=== PATIENT | female | born 1990 | race Caucasian/White ===

== ENCOUNTER → 2017-01-20 | Outpatient (CLI) | payer BC ==
[~2017-01-20] MED LIST: BUPROPION HCL150 M1 PO; HYDROXYZINE HCL25 M1 PO; JULEBER 28 DAY1 EACH PO; MEDROL DOSEPAK4 MG PO; ZITHROMAX250 MG PO
[2017-01-20 13:23] LABS: BILIRUBIN NEGATIVE (NEGATIVE); BLOOD TRACE-INTACT (NEGATIVE); CLARITY CLEAR (CLEAR); COLOR YELLOW (YELLOW); GLUCOSE NEGATIVE (NEGATIVE); KETONE NEGATIVE (NEGATIVE); LEUKO ESTERASE NEGATIVE (NEGATIVE); NITRITE NEGATIVE (NEGATIVE); PROTEIN NEGATIVE (NEGATIVE); SPECIFIC GRAVITY <= 1.005 (1.005-1.030); UROBILINOGEN 0.2 E.U./dl (0.2-1.0)
[2017-01-20 13:32] LABS: URINE REFLEX COMMENT NO (NO)
== END | disposition home or self-care (01) ==
LOC: LAB 12:41
PROVIDERS: Registered Nurse
DX: R35.0 Frequency of micturition (principal)

== ENCOUNTER → 2017-02-02 | Day surgery (SDC) | payer OTHER ==
[~2017-02-02] VITALS: Ht 157.4 cm; Wt 51.7 kg
--- NOTE | ~2017-02-02 | PROC NOTE ---
[place], [place] PROCEDURE NOTE NAME: NAYELY RODRIGUES UNIT #: [id number] ROOM: DOCTOR: JUAN BIGGS MD BIRTHDATE: [birth year] DOS: 02/02/2017 PREOPERATIVE DIAGNOSIS: Chronic diarrhea, abdominal pain. POSTOPERATIVE DIAGNOSIS: Chronic diarrhea, abdominal pain. PROCEDURE: Colonoscopy with biopsies. ENDOSCOPIST: Juan Biggs MD TEACHING SUPERVISOR: PGY1. ANESTHESIA: MAC. INDICATIONS: This is a 26-year-old lady with a history of chronic abdominal pain and diarrhea, who is here for the above-mentioned procedure. The procedure and its complications explained to the patient in detail preoperatively. Complications that were discussed included but were not limited to, bleeding, colon perforation, missed lesions, and prolonged pain. She agreed to proceed. DESCRIPTION OF PROCEDURE: After identifying the patient, the patient was brought to the endoscopy suite and laid in the left lateral position. After time-out procedure was called, IV sedation was administered by the anesthesia team. A digital rectal exam was performed, which was within normal limits. An adult colonoscope was now introduced into the anal canal and advanced sequentially into the rectum, sigmoid colon, descending colon, transverse colon and ascending colon up to the cecum. There were no obvious abnormalities in the entire colonic mucosa that was visualized. Multiple biopsies starting from the cecum, ascending colon, transverse colon, descending colon, and sigmoid colon were taken upon withdrawal of the scope, which took approximately 7 minutes. All these biopsies were sent in separate containers to pathology. Thereafter, the scope was withdrawn and the patient was taken to the recovery room in stable fashion. There were no complications. Based on these findings, the patient is recommended to have another colonoscopy at the age of 52 or sooner if she has any symptoms. These findings were discussed with the patient's boyfriend in the postoperative recovery room and I will discuss these findings with the patient herself when she sees me in the postoperative recovery period. There were no complications. Dr. Juan Biggs, the attending endoscopist, was present throughout the operating case. [place], [place] PROCEDURE NOTE NAME: NAYELY RODRIGUES UNIT #: [id number] ROOM: DOCTOR: JUAN BIGGS MD BIRTHDATE: [birth year] Juan Biggs MD CM:ELSY:PROCEDURE NOTE [id number] JUAN BIGGS MD
[2017-02-02 09:46] VITALS: BP 141/88
[2017-02-02 10:25] VITALS: BP 98/58
[2017-02-02 10:39] VITALS: BP 106/58
[2017-02-02 10:55] VITALS: BP 124/77
== END | disposition home or self-care (01) ==
LOC: SDC 02-01 13:15
DX: K52.9 Noninfective gastroenteritis and colitis, unspecified (principal); R10.9 Unspecified abdominal pain; F32.9 Major depressive disorder, single episode, unspecified; F41.9 Anxiety disorder, unspecified; Z79.899 Other long term (current) drug therapy; K21.9 Gastro-esophageal reflux disease without esophagitis; Z88.1 Allergy status to other antibiotic agents

== ENCOUNTER → 2017-02-08 | Outpatient (CLI) | payer OTHER | END | disposition home or self-care (01) | LOC: US 07:34 | DX: R10.13 Epigastric pain (principal) ==